=== PATIENT | female | born 1980 | race Caucasian/White ===

== ENCOUNTER 2017-02-04 17:11 | Emergency (ER) | payer BC ==
--- NOTE | 2017-02-04 17:51 | UCPHY ---
H & P Time Seen by Provider: 02/04/17 17:34 Patient Type: New HPI/ROS: 36-year-old female approximately the 13 weeks by dates presents with hyperemesis , patient has been on doxylamine and vitamin B6. States she has vomiting all day today. No fevers or chills no abdominal pain no diarrhea No vaginal bleeding Review of systems As per HPI General no fever no chills no weakness HEENT no eye pain no eye discharge. No eye redness, no sore throat Respiratory no cough, no shortness of breath Cardiac no chest pain, no peripheral edema GI no abdominal pain, no diarrhea, no constipation, positive nausea positive vomiting no flank pain, no hematuria, no dysuria Musculoskeletal no myalgias, no joint pain Heme no easy bruising, no easy bleeding Endo no polyuria, no polydipsia Skin no rashes, no pruritus Neuro no syncope, no dizziness, no headaches Psych is no suicidal ideation, no homicidal ideation Past Medical/Surgical History: Prior history of hyperemesis Social History: Denies alcohol or drug use Smoking Status: Never smoked Physical Exam: 36-year-old female alert and oriented mild distress secondary to nausea otherwise nontoxic appearance afebrile HEENT atraumatic normocephalic, extraocular muscles intact, anicteric Oropharynx negative for erythema negative exudate, tolerating her own secretions Neck supple no meningismus Lungs clear to auscultation bilaterally Heart regular rate and rhythm without murmur rub or gallop Abdomen nondistended normoactive bowel sounds soft nontender fht present Back no CVA tenderness, no step-offs, no spinal tenderness Extremities no cyanosis clubbing or edema Neuro alert and oriented, no focal deficits Constitutional: Initial Vital Signs Temperature (C) 36.5 C 02/04/17 17:32 Heart Rate 96 02/04/17 17:32 Respiratory Rate 16 02/04/17 17:32 Blood Pressure 121/79 H 02/04/17 17:32 O2 Sat (%) 100 02/04/17 17:32 O2 Delivery Mode Room Air Allergies/Adverse Reactions: No Known Allergies Allergy (Unverified 02/04/17 17:31) Home Medications: Medication Instructions Recorded NK [No Known Home Meds] 02/04/17 Medical Decision Making ED Course/Re-evaluation: Patient seen and evaluated for hyperemesis IV fluids started, labs drawn Patient given Reglan Later patient additionally given Zofran She received 1 L D5 NS followed by 2 L normal saline Labs within normal limits Urine with positive for ketones Impression Hyperemesis gravidarum Plan Discharge Patient to restart her Diclegis Follow up instructor looping janeen Return as needed - Data Points Laboratory Results: Laboratory Results 02/04/17 17:49 02/04/17 17:49 Medications Given: Discontinued Medications Diphenhydramine HCl (Benadryl Injection) 25 mg IVP EDNOW ONE Stop: 02/04/17 17:57 Last Admin: 02/04/17 18:20 Dose: 25 mg Dextrose/Sodium Chloride (D5w Ns) 1,000 mls @ 0 mls/hr IV CONT OLIVIER PRN Reason: As Directed Stop: 08/03/17 17:59 Last Admin: 02/04/17 18:00 Dose: 1,000 mls Sodium Chloride (Ns) 1,000 mls @ 0 mls/hr IV ONCE ONE PRN Reason: Wide Open Stop: 02/04/17 18:28 Last Admin: 02/04/17 20:30 Dose: 1,000 mls Sodium Chloride (Ns) 1,000 mls @ 0 mls/hr IV ONCE ONE PRN Reason: Wide Open Stop: 02/04/17 19:21 Last Admin: 02/04/17 19:25 Dose: 1,000 mls Metoclopramide HCl (Reglan Injection) 10 mg IVP EDNOW ONE Stop: 02/04/17 17:56 Last Admin: 02/04/17 18:20 Dose: 10 mg Ondansetron HCl (Zofran) 4 mg IVP EDNOW ONE Stop: 02/04/17 21:21 Last Admin: 02/04/17 21:35 Dose: 4 mg Departure - Departure Disposition: Home, Routine, Self-Care Clinical Impression: Hyperemesis gravidarum Condition: Good Instructions: Hyperemesis Gravidarum (ED) Referrals: NONE *PRIMARY CARE P,. [Primary Care Provider] - As per Instructions - PQRS PQRS Measurement: na
[2017-02-04] MEDS ORDERED: METOCLOPRAMIDE 10 MG/2 ML VIAL IVP ONE (17:55)
[2017-02-04 17:58] LABS: % IMMATURE GRANULYOCYTES 0.3 % (0.0-1.1); ABSOLUTE IMMATURE GRANULOCYTES 0.04 10^3/uL (0.00-0.10); ADD DIFF? NO; ADD MORPH? NO; ADD SCAN? NO; ATYPICAL LYMPHOCYTE FLAG 0 (0-99); FRAGMENT RBC FLAG 0 (0-99); HEMATOCRIT 44.9 % (38.0-47.0); HEMOGLOBIN 15.6 g/dL (12.6-16.3); LEFT SHIFT FLG 0 (0-99); LIPEMIA HEMOLYSIS FLAG 90 (0-99); MEAN CELL HEMOGLOBIN 29.9 pg (27.9-34.1); MEAN CELL HEMOGLOBIN CONCENTR. 34.7 g/dL (32.4-36.7); MEAN CELL VOLUME 86.2 fL (81.5-99.8); MEAN PLATELET VOLUME 9.9 fL (8.7-11.7); PLATELET CLUMPS FLAG 10 (0-99); PLATELET COUNT 180 10^3/uL (150-400); RED BLOOD CELL COUNT 5.21 10^6/uL (4.18-5.33); RED CELL DISTRIBUTION WIDTH 13.3 % (11.5-15.2)
[2017-02-04] MEDS ORDERED: D5W NS 1,000 ML IV SCH (18:00)
[2017-02-04 18:12] LABS: ALANINE AMINOTRANSFERASE 33 IU/L (9-52); ALBUMIN 3.8 g/dL (3.5-5.0); ALKALINE PHOSPHATASE 84 IU/L (38-126); ANION GAP 16 mEq/L (8-16); ASPARTATE AMINOTRANSFERASE 20 IU/L (14-46); BILIRUBIN,TOTAL 0.7 mg/dL (0.1-1.4); CALCIUM 8.8 mg/dL (8.5-10.4); CARBON DIOXIDE 20 mEq/l (22-31); CHLORIDE 102 mEq/L (97-110); CREATININE 0.5 mg/dL (0.6-1.0); GLOMERULAR FILTRATION RATE > 60; GLUCOSE 77 mg/dL (70-100); MAGNESIUM 1.6 mg/dL (1.6-2.3); POTASSIUM 3.8 mEq/L (3.5-5.2); SODIUM 138 mEq/L (134-144)
[2017-02-04] MEDS ORDERED: NS 1,000 ML IV ONE ×3 (18:27→20:23)
[2017-02-04 20:19] LABS: COLOR YELLOW; LEUKOCYTE ESTERASE,URINE NEGATIVE (NEGATIVE); NITRITE,URINE NEGATIVE (NEGATIVE)
[2017-02-04 20:21] VITALS: TEMP 99; O2SAT 97
[2017-02-04 20:31] VITALS: RESP 16
[2017-02-04 20:40] LABS: BACTERIA 2+ /hpf (NONE SEEN); MUCUS 2+ /lpf (NONE-1+); RBC,URINE NONE SEEN /hpf (0-3)
[2017-02-04] MEDS ORDERED: ONDANSETRON 4 MG/2 ML VIAL IVP ONE (21:20)
[2017-02-04 23:12] VITALS: BP 97/50; PULSE 102
== END 2017-02-04 22:30 | disposition home or self-care (01) ==
LOC: CED 17:11
DX: O21.0 Mild hyperemesis gravidarum (principal); Z3A.13 13 weeks gestation of pregnancy
CPT/HCPCS: 80053-PO; 81003-PO; 81015-PO; 83690-PO; 83735-PO; 85025-PO; 96361-PO; 96374-PO; 96375-PO; 99203-PO; G0463-PO; J1200; J2405; J2765